=== PATIENT | female | born 2000 | race Caucasian/White ===

== ENCOUNTER 2024-06-01 04:11 | Emergency (ER) | payer OTHER ==
[2024-06-01] MEDS ORDERED: Famotidine/PF 20 mg/2ml Vial ONE (04:34)
== END 2024-06-01 07:09 | disposition home or self-care (01) ==
LOC: ERS 04:11
DX: T78.2XXA Anaphylactic shock, unspecified, initial encounter (principal)
CPT/HCPCS: 96374; J3490